=== PATIENT | female | born 1940 | race Caucasian/White ===

== ENCOUNTER 2019-07-17 10:32 | Outpatient (CLI) | payer MEDICARE, OTHER, SELFPAY ==
--- NOTE | ~2019-07-17 | XR_ITS ---
XR cervical spine 4-5V DATE: 07/17/2019 11:08 INDICATION: Neck pain. Spinal stenosis. TECHNIQUE: AP, open-mouth, lateral, swimmer views COMPARISON: 09/04/2013 cervical spine FINDINGS: Status post anterior cervical spine surgical fusion at C3-C5. Anterior plate and screws at C3-C5 are new since 09/04/2013, with interval removal of prior anterior plate at C5-C7/T1 since 014. There is straightening of the cervical spine. C1 and C2 are normally aligned and the odontoid process is intact. No fracture or dislocation, locked facet or prevertebral soft tissue swelling is evident. There is fusion of the anterior cervical spine at C3-C7. IMPRESSION: Status post surgical fusion at C3-C7 Reviewed, dictated and finalized at location B. F MEDICAL OFFICER
== END 2019-07-17 10:33 | disposition home or self-care (01) ==
LOC: ANHIMG 10:53
PROVIDERS: PCP Internal Medicine
DX: M48.02 Spinal stenosis, cervical region (principal); Z98.1 Arthrodesis status
CPT/HCPCS: 72050

== ENCOUNTER 2020-01-13 12:45 | Outpatient (CLI) | payer MEDICARE, OTHER, SELFPAY ==
--- NOTE | ~2020-01-13 | US_ITS ---
EXAMINATION: US arterial ankle brachial ind DATE: 01/13/2020 14:22 INDICATION: Peripheral vascular disease with risk factors of diabetes, hypercholesterolemia and smoki ng. TECHNIQUE: Segmental pressures and plethysmographic and Doppler waveforms of the brachial and lower e xtremity arteries were obtained. COMPARISON: None. FINDINGS: Right and left brachial artery pressures of 120 mm Hg and 135 mm Hg, respectively, are concordant (no rmal difference <= 30 mmHg). The right ankle-brachial index (KEE) is 0.91 (normal >= 0.9-1.0). The right great toe-brachial index (TBI) is 0.60 (normal >= 0.65). Arterial Doppler waveforms are biphasic with brisk systolic upstrokes at both the right posterior tibial and dorsalis pedis arteries. The left KEE is 0.91. The left TBI is 0.54. Arterial Doppler waveforms are biphasic with brisk systol ic upstrokes at both the left posterior tibial and dorsalis pedis arteries. IMPRESSION: 1. 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 Reviewed, dictated and finalized at location A. IMPRESSION: 1. 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
== END 2020-01-13 12:46 | disposition home or self-care (01) ==
PROVIDERS: PCP Internal Medicine; Visit Provider Internal Medicine
DX: I73.9 Peripheral vascular disease, unspecified (principal)
CPT/HCPCS: 93922

== ENCOUNTER 2020-08-11 13:20 | Outpatient (CLI) | payer MEDICARE, OTHER, SELFPAY | END 2020-08-11 13:21 | disposition home or self-care (01) | LOC: ANHCOVIDVC 13:20 | PROVIDERS: PCP Internal Medicine; Visit Provider Internal Medicine | DX: Z23 Encounter for immunization (principal) | CPT/HCPCS: 0001A; 91300 ==

== ENCOUNTER 2020-09-01 13:32 | Outpatient (CLI) | payer MEDICARE, OTHER, SELFPAY | END 2020-09-01 13:33 | disposition home or self-care (01) | LOC: ANHCOVIDVC 13:32 | PROVIDERS: PCP Internal Medicine | DX: Z23 Encounter for immunization (principal) | CPT/HCPCS: 0002A; 91300 ==

== ENCOUNTER 2020-12-02 10:32 | Outpatient (CLI) | payer MEDICARE, OTHER, SELFPAY ==
--- NOTE | ~2020-12-02 | XR_ITS ---
EXAMINATION: XR lumbar spine min 4V DATE: 12/02/2020 10:52 INDICATION: Lumbago. Sciatica. TECHNIQUE: 5 views of lumbar spine were obtained. COMPARISON: Lumbar spine radiographs 04/13/2012 FINDINGS: There is 15 degrees dextroscoliosis of lumbar spine. There is 5 mm anterolisthesis of L4 on L5, 6 mm retrolisthesis of L2 on L3, and 3 mm retrolisthesis of L3 on L4. Vertebral body heights are normal. There is severely decreased disc height at L2-L3, moderately decreased disc height at L3-L4 and L4-L5, and severely decreased disc height at L5-S1. There is multilevel severe facet joint osteoa rthritis. There are surgical clips in right abdomen. IMPRESSION: 1. Severe lumbar spondylosis. 2. Lumbar dextroscoliosis. Reviewed, dictated and finalized at location A.
== END 2020-12-02 10:33 | disposition home or self-care (01) ==
PROVIDERS: PCP Internal Medicine; Visit Provider Internal Medicine
DX: M54.41 Lumbago with sciatica, right side (principal); G89.29 Other chronic pain; M47.896 Other spondylosis, lumbar region
CPT/HCPCS: 72110

== ENCOUNTER 2020-12-09 14:31 | Outpatient (CLI) | payer MEDICARE, OTHER, SELFPAY ==
--- NOTE | ~2020-12-09 | MR_ITS ---
EXAMINATION: MR lumbar spine wo con DATE: 12/09/2020 15:15 INDICATION: Lumbago with sciatica, right-sided. TECHNIQUE: Magnetic resonance imaging (MRI) of the lumbar spine was performed without intravenous con trast. Sequences included sagittal T2-weighted FSE, sagittal T2-weighted FS FSE, sagittal T1-weighted FSE, and axial T2-weighted FSE. COMPARISON: Lumbar spine MRI 09/22/2016 FINDINGS: There is 16 degrees dextroscoliosis of lumbar spine. There is 6 mm retrolisthesis of L2 on L3, 3 mm retrolisthesis of L3 on L4, and 6 mm anterolisthesis of L4 on L5. Vertebral body heights are normal. There is severely decreased disc height at L2-L3 and L3-L4, moderately decreased disc height at L4-L5, and severely decreased disc height at L5-S1 with endplate remodeling. The distal spinal co rd signal intensity is normal. The conus medullaris is at L1-L2. There is ligamentum flavum hypertrop hy at the disc levels from L1-L2 through L4-L5. The following disc levels are specifically discussed: L1-L2: The disc does not extend beyond the endplate margins. There is moderate right and mild left fa cet joint osteoarthritis. There is no neural foraminal stenosis. There is no central canal stenosis. L2-L3: The disc is bulging and has an annular fissure. There is severe bilateral facet joint osteoart hritis. There is moderate right and severe left neural foraminal stenosis. There is mild central alexandra l stenosis. L3-L4: The disc is bulging. There is severe bilateral facet joint osteoarthritis. There is moderate b ilateral neural foraminal stenosis. There is moderate central canal stenosis. L4-L5: The disc is bulging and has an annular fissure. There is severe bilateral facet joint osteoart hritis. There is moderate bilateral neural foraminal stenosis. There is severe central canal stenosis . L5-S1: The disc is bulging and has an annular fissure. There is severe right and moderate left facet joint osteoarthritis. There is moderate bilateral neural foraminal stenosis. There is mild central ca nal stenosis. IMPRESSION: 1. Severe lumbar spondylosis with interval worsening of severe central canal stenosis at L4-L5. 2. Lumbar dextroscoliosis. Reviewed, dictated and finalized at location A. IMPRESSION: 1. Severe lumbar spondylosis with interval worsening of severe central canal st enosis at L4-L5. 2. Lumbar dextroscoliosis.
== END 2020-12-09 14:32 | disposition home or self-care (01) ==
PROVIDERS: PCP Internal Medicine; Visit Provider Internal Medicine
DX: M54.41 Lumbago with sciatica, right side (principal); G89.29 Other chronic pain; M47.896 Other spondylosis, lumbar region
CPT/HCPCS: 72148

== ENCOUNTER 2021-05-13 07:38 | Outpatient (CLI) | payer MEDICARE, OTHER, SELFPAY ==
--- NOTE | ~2021-05-13 | DEXA_ITS ---
Bone Density Report Name: Ebony Núñez Age: 80 Sex: Female Ethnicity: White Date of : 1940 Indication: osteopenia; height loss; prior fracture; hysterectomy; postmenopausal Referring Provider: Zane Shields Study: Bone densitometry was performed. Exam Date: May 13, 2021 Accession number: [id number] There is hypertrophic degenerative change of the lumbar spine, which results in higher than expected spine bone mineral density measurements. These spine BMD and T score and Z score measurements are not reflective of the patient's true general bone mineral density. Bone Density: Region BMD T-score Z-score Classification AP Spine (L1, L4) 1.072 0.3 2.9 Normal Femoral Neck (Left) 0.695 -1.4 0.9 Osteopenia Total Hip (Left) 0.788 -1.3 0.8 Osteopenia Total Hip Bilateral Avg 0.779 -1.4 0.7 Osteopenia Femoral Neck (Right) 0.677 -1.6 0.7 Osteopenia Total Hip (Right) 0.768 -1.4 0.6 Osteopenia World Health Organization criteria for BMD impression classify patients as: Normal (T-score at or above -1.0), Osteopenia (T-score between -1.0 and -2.5), or Osteoporosis (T-score at or below -2.5). 10-year Fracture Risk(1): Major Osteoporotic Fracture 19% Hip Fracture 6.5% Reported Risk Factors: [place] (), Neck BMD=0.677, BMI=23.0, previous fracture, smoking (1) FRAX(R) Version 3.08. Fracture probability calculated for an untreated patient. Fracture probability may be lower if the patient has received treatment. Previous Exams: Region Exam Age BMD T-score BMD Change BMD Change Date g/cm2 vs Baseline vs Previous AP Spine(L1, L4) 05/13/2021 80 1.072 0.3 -0.051(-4.5%)# 0.000(0.0%) 04/12/2019 78 1.071 0.3 -0.051(-4.6%)# 0.014(1.3%) 03/10/2016 75 1.058 0.2 -0.065(-5.8%)# -0.067(-5.9%)# 02/21/2013 72 1.124 0.8 0.002(0.1%)# 0.002(0.1%)# 12/16/2010 70 1.122 0.8 Total Hip(Left) 05/13/2021 80 0.788 -1.3 -0.201(-20.3%) -0.073(-8.4%)* 04/12/2019 78 0.861 -0.7 -0.128(-12.9%) -0.010(-1.1%) 03/10/2016 75 0.871 -0.6 -0.118(-12.0%) -0.039(-4.3%)# 02/21/2013 72 0.909 -0.3 -0.079(-8.0%)# -0.079(-8.0%)# 12/16/2010 70 0.989 0.4 Total Hip(Right) 05/13/2021 80 0.768 -1.4 -0.116(-13.1%) -0.025(-3.1%) 04/12/2019 78 0.793 -1.2 -0.091(-10.3%) -0.030(-3.6%)* 03/10/2016 75 0.823 -1.0 -0.061(-6.9%)# -0.035(-4.1%)# 02/21/2013 72 0.858 -0.7 -0.026(-2.9%)# -0.026(-2.9%)# 12/16/2010 70 0.883 -0.5 *Denotes significance at 95% confidence level, LSC for AP Spine = 0.022 g/cm2, LSC for Total Hip
== END 2021-05-13 07:39 | disposition home or self-care (01) ==
LOC: ANHIMG 07:42
PROVIDERS: PCP Internal Medicine; Visit Provider Internal Medicine
DX: M85.852 Other specified disorders of bone density and structure, left thigh (principal); M85.851 Other specified disorders of bone density and structure, right thigh
CPT/HCPCS: 77080

== ENCOUNTER 2021-07-30 16:55 | Emergency (ER) | payer MEDICARE, OTHER, SELFPAY ==
--- NOTE | ~2021-07-30 | XR_ITS ---
EXAMINATION: XR shoulder RT min 2V, XR humerus RT EXAM DATE: 07/30/2021 17:27 (accession [id number]), 07/30/2021 17:28 (accession [id number]) INDICATION: Fall on ice today; pain Rt shoulder, LROM. TECHNIQUE: Frontal, Y projections of the right shoulder. Orthogonal projections of the right humerus. There are no prior studies for comparison. FINDINGS: Acute closed posttraumatic fracture of the right humeral greater tuberosity. There is also possible transverse fracture through the neck of the humerus. No dislocation. IMPRESSION: Right humeral greater tuberosity and possible transverse neck fracture. Reviewed, dictated and finalized at location G. ES OPERATOR IMPRESSION: Right humeral greater tuberosity and possible transverse neck fract ure.
--- NOTE | ~2021-07-30 | CT_ITS ---
EXAMINATION: CT brain wo con EXAM DATE: 07/30/2021 18:09 INDICATION: Head injury, laceration to right eyebrow. TECHNIQUE: Spiral CT of the head was performed without contrast. Axial, coronal and sagittal images were reviewed. The dose-length product (DLP) for this examination was 605.33 mGy-cm. The exposure w as tailored according to patient size, and iterative reconstruction (ASIR) was used as additional dos e reduction technique. There is no prior study for comparison. FINDINGS: There is no acute intraparenchymal hemorrhage. No evidence of intraparenchymal brain mass lesion. No evidence of acute infarction. Please note that initial head CT has limited sensitivity f or small or acute infarctions. There is mild periventricular and subcortical hypodensity, nonspecific but probably related to small vessel ischemic disease. There is mild prominence of the sulci and v entricles related to cerebral atrophy. There is intracranial carotid arteriosclerosis. There are n o extra-axial collections. There is no mass effect or midline shift. Patient has had bilateral ocul ar lens surgery. Soft tissue is unremarkable. The visualized sinuses and mastoid air cells are well aerated. IMPRESSION: 1. No acute intracranial findings. 2. Chronic age related findings. Reviewed, dictated and finalized at location G. ATING ROOM ASSISTANT
[2021-07-30 17:00] VITALS: BP 131/69; PULSE 82; RESP 18; TEMP 36.2; O2SAT 98
--- NOTE | 2021-07-30 18:42 | ED.FALL ---
HPI - Fall General Chief Complaint: Fall Stated Complaint: slipped on ice, forehead lac, r shoulder pain Time Seen by Provider: 07/30/21 17:51 Source: patient and RN notes reviewed History of Present Illness HPI Narrative: 80-year-old female presenting to the emerge department for evaluation after having a ground-level fall. Patient states she was walking on the sidewalk and slipped on the ice causing her to fall on the right side and strike her face on the ground. Patient denies any loss of consciousness. Patient does have right shoulder pain. Patient denies any other pain or injury. Patient was able to ambulate at the scene with assistance. Patient presented to the emergency department by private transport. MD complaint: fall Related Data Allergies Allergy/AdvReac Type Severity Reaction Status Date / Time azithromycin Allergy Mild red Verified 07/01/21 13:15 blotches codeine Allergy Mild head aches Verified 07/01/21 13:15 niacin Allergy Mild skin feels Verified 07/01/21 13:15 hot prednisone Allergy Mild migraine Verified 07/01/21 13:15 headaches STEROIDS Allergy Intermediate Headache Uncoded 07/01/21 13:15 Review of Systems Review of Systems: CONSTITUTIONAL: Denies fever, chills, or sweats. EYES: Denies visual changes, redness, or discharge. ENT: Denies rhinorrhea, congestion, sore throat, or otalgia. CARDIOVASCULAR: Denies chest pain, palpitations, or edema. RESPIRATORY: Denies cough or dyspnea. GASTROINTESTINAL: Denies abdominal pain, nausea, vomiting, or diarrhea. GENITOURINARY: Denies dysuria or hematuria. SKIN: Laceration over right eyebrow MUSCULOSKELETAL: Right shoulder pain NEUROLOGIC: Denies headache, numbness, or weakness. PSYCHIATRIC: Denies anxiety or depression. All systems reviewed & are unremarkable except as noted in HPI and below PMFSH Family History Family History Mother Family history of tuberculosis Father Cerebrovascular accident Sibling Family history of aortic aneurysm Social History Social History Smoking packs per day: 0.5 Smoking cigarettes per day: 10.0 Years smoked: 62 Smoking pack-years: 31.00 Second hand tobacco smoke exposure: No Alcohol intake: never Substance use: never Substance use type: does not use Exam Narrative: APPEARANCE: Well appearing, no pain, no distress, well-nourished. HEAD: normocephalic, 3 cm laceration over right eyebrow EYES: PERRLA/EOMI, conjunctivae clear. NOSE: Normal no drainage EARS:TMS clear with good light reflex. THROAT: Pharynx clear, no exudate. NECK: Supple. No adenopathy, no masses. RESPIRATORY: Airway patent, respirations nonlabored. Clear to auscultation bilaterally, no rales, rhonchi, wheezing. CARDIOVASCULAR: Regular rate and rhythm without murmurs rubs or gallops. ABDOMINAL: Soft, nontender, nondistended, normal bowel sounds MUSCULOSKELETAL: Right arm is neurovascularly intact. Right shoulder tender to palpation. No gross deformity. NEURO: Alert. Cranial nerves II through XII intact. Good coordination SKIN: Warm, dry. Normal Color PSYCHIATRIC: Normal affect/mood. Course Course Emergency Course: Patient's laceration was repaired as described. Patient does have a fracture of her right humerus. Patient was placed in a shoulder immobilizer and does feel improved. Patient states that she feels she is able to ambulate well and able to take care of her self. Patient is requesting discharge to home. X-ray was shown to orthopedics and they were comfortable with the plan for discharge and close follow-up in the clinic. Vital Signs Vital signs: Vital Signs Temperature 97.2 F L 07/30/21 17:00 Pulse Rate 82 07/30/21 17:00 Respiratory Rate 18 07/30/21 17:00 Blood Pressure 131/69 07/30/21 17:00 Pulse Oximetry 98 07/30/21 17:00 Temperature 97.2 F L 07/30/21 17:00 Pulse Rate 82 07/30/21
--- NOTE | 2021-07-30 19:43 | PC.NURSE ---
Shoulder immobilizer applied to right shoulder. Patient tolerated well. Patient then ambulated to the restroom with manual writer and back to her room. Patient reported she was okay and was okay to go home.
[2021-07-30] MEDS: HYDROcodone/acetaminophen (*CRX) 5-325 MG TABLET 1 TAB PO (21:14)
--- NOTE | 2021-07-30 21:37 | PC.NURSE ---
RN noted that [facility] to [facility] which is a home delivery [facility]. ERP notified and Rx printed and given to Pt. Pt walked to the car by RN and assisted into the car.
== END 2021-07-30 20:20 | disposition home or self-care (01) ==
PROVIDERS: Emergency Provider Emergency Medicine; PCP Internal Medicine
DX: S01.111A Laceration without foreign body of right eyelid and periocular area, initial encounter (principal); S42.251A Displaced fracture of greater tuberosity of right humerus, initial encounter for closed fracture; F17.210 Nicotine dependence, cigarettes, uncomplicated; W00.0XXA Fall on same level due to ice and snow, initial encounter
CPT/HCPCS: 12013; 70450; 73030; 73060; 99284; A9270

== ENCOUNTER 2022-03-15 00:58 | Day surgery (SDC) | payer MEDICARE, OTHER, SELFPAY ==
[2022-02-24 13:24] VITALS: BMI 22.8
[2022-03-15 07:58] VITALS: BP 115/80; PULSE 94; RESP 16; TEMP 36.4; O2SAT 98
[2022-03-15] MEDS: LACTATED RINGERS 1,000 ML 150 ML IV CONT ×2 (08:04→09:08)
--- NOTE | 2022-03-15 08:43 | PM.HPGS ---
History of Present Illness History of Present Illness Consent: Risks, benefits, and alternatives have been discussed and questions answered. Patient agrees to proceed with procedure. Chief complaint: change in bowel habits Narrative: Ebony Núñez is a 81 year old female here for colonoscopy, several months noted mucus in stool and change in caliber of stool but this is also intermittent, denies blood in stool or weight loss. Recently also had an accident without warning. Last colonoscopy 8 years ago with polyp Review of Systems Constitutional: Constitutional: Denies headache(s) and Denies weakness Eyes: Eyes: Denies blurry vision ENT: Reports Normal hearing present, Denies headache(s) and Denies neck pain Cardiovascular: Cardiovascular: Denies chest pain and Denies dyspnea Respiratory: Respiratory: Denies dyspnea Gastrointestinal: Gastrointestinal: Reports no additional gastrointestinal complaints Genitourinary: Genitourinary: Denies dysuria Musculoskeletal: Musculoskeletal: Denies neck pain Integumentary/Breasts: Skin/Breast: Denies dry skin Neurologic: Reports Normal hearing present, Denies headache(s) and Denies weakness Psychiatric: Psychiatric: Denies anxiety Endocrine: Endocrine: Denies change in body appearance Hematologic/Lymphatic: Hematologic/Lymphatic: Denies easy bleeding Allergic/Immunologic: Allergic/Immunologic: Denies urticaria PMFSH Past Medical History Medical History (Updated 01/27/22 @ 14:18 by Jordon Michelle MD) Bowel habit changes DJD of right shoulder Family History Family History Mother Family history of tuberculosis Father Cerebrovascular accident Sibling Family history of aortic aneurysm Social History Social History (Updated 01/27/22 @ 13:49 by Iman Kay CMA) Smoking packs per day: 0.5 Smoking cigarettes per day: 10.0 Years smoked: 62 Smoking pack-years: 31.00 Smoking status: Current every day smoker Tobacco type: cigarettes Second hand tobacco smoke exposure: No Additional smoking assessment comments: has smoked for 62 years Alcohol intake: never Substance use: current Substance use type: marijuana Other substance usage details: uses weekly for pain Living arrangements: alone Gender identity (if verbalized by the patient): Female Spiritual care concerns: No Meds Home Medications and Allergies Home Medications Medication Instructions Recorded Confirmed Type atorvastatin 40 mg tablet 40 mg PO DAILY #90 tabs 04/09/21 03/15/22 Rx celecoxib 200 mg capsule (Celebrex) 200 mg PO DAILY #90 caps 09/09/21 03/15/22 Rx tramadol 50 mg tablet 50 mg PO Q6H PRN pain #30 tabs 09/28/21 03/15/22 Rx famotidine 40 mg tablet 40 mg PO BID #180 tabs 10/12/21 03/15/22 Rx amitriptyline 10 mg tablet See Rx Instructions .Route 10/18/21 03/15/22 Rx .COMPLEX #90 tabs losartan 100 1 tablet PO DAILY #90 tabs 10/28/21 03/15/22 Rx mg-hydrochlorothiazide 12.5 mg tablet potassium chloride 10 mEq 30 meq PO DAILY #270 tabs 11/09/21 03/15/22 Rx tablet,extended release Allergies Allergy/AdvReac Type Severity Reaction Status Date / Time azithromycin Allergy Mild red Verified 03/15/22 07:56 blotches codeine Allergy Mild head aches Verified 03/15/22 07:56 niacin Allergy Mild skin feels Verified 03/15/22 07:56 hot prednisone Allergy Mild migraine Verified 03/15/22 07:56 headaches STEROIDS Allergy Intermediate Headache Uncoded 03/15/22 07:56 Vital Signs Vital Signs - 24 hr 03/15/22 07:58 Temperature 97.5 F L Pulse Rate 94 Respiratory Rate 16 Blood Pressure 115/80 Pulse Oximetry 98 Oxygen Delivery Room Air Exam Const: General: comfortable and no acute distress HENMT: Face/Nose/Sinus: Normal nares present Eyes: General: appearance normal, both eyes and all related structures Neck: Neck: no JVD Resp: Auscultation: cl
--- NOTE | 2022-03-15 08:52 | WPDANESEPPF ---
Anes - Initial Pre Proc Eval Procedure: Operation Date: 03/15/22 09:00 Proposed Procedures p Colonoscopy - Jordon Michelle MD Date/Time: 03/15/22 08:52 Surgeon: Jordon Michelle MD Pre Op Diagnosis: change in bowel habits Patient Data Age: 81 Gender: F Height: 1.6 m Weight: 58.3 kg Last Vital Signs Temp 97.5 F L 03/15/22 07:58 Pulse 94 03/15/22 07:58 Resp 16 03/15/22 07:58 BP 115/80 03/15/22 07:58 Pulse Ox 98 03/15/22 07:58 O2 Del Method Room Air 03/15/22 07:58 Allergies Allergy/AdvReac Type Severity Reaction Status Date / Time azithromycin Allergy Mild red Verified 03/15/22 07:56 blotches codeine Allergy Mild head aches Verified 03/15/22 07:56 niacin Allergy Mild skin feels Verified 03/15/22 07:56 hot prednisone Allergy Mild migraine Verified 03/15/22 07:56 headaches STEROIDS Allergy Intermediate Headache Uncoded 03/15/22 07:56 Home Medications Medication Instructions Recorded Confirmed Type atorvastatin 40 mg tablet 40 mg PO DAILY #90 tabs 04/09/21 03/15/22 Rx celecoxib 200 mg capsule (Celebrex) 200 mg PO DAILY #90 caps 09/09/21 03/15/22 Rx tramadol 50 mg tablet 50 mg PO Q6H PRN pain #30 tabs 09/28/21 03/15/22 Rx famotidine 40 mg tablet 40 mg PO BID #180 tabs 10/12/21 03/15/22 Rx amitriptyline 10 mg tablet See Rx Instructions .Route 10/18/21 03/15/22 Rx .COMPLEX #90 tabs losartan 100 1 tablet PO DAILY #90 tabs 10/28/21 03/15/22 Rx mg-hydrochlorothiazide 12.5 mg tablet potassium chloride 10 mEq 30 meq PO DAILY #270 tabs 11/09/21 03/15/22 Rx tablet,extended release Patient hx anesthesia problems: post op nausea/vomiting Family hx anesthesia problems: none Results Review: All pre-operative results and documents have been reviewed as part of the pre-operative evaluation. [facility] Past Medical History Medical History (Updated 01/27/22 @ 14:18 by Jordon Michelle MD) Bowel habit changes DJD of right shoulder Family History Family History Mother Family history of tuberculosis Father Cerebrovascular accident Sibling Family history of aortic aneurysm Social History Social History (Updated 01/27/22 @ 13:49 by Iman Kay CMA) Smoking packs per day: 0.5 Smoking cigarettes per day: 10.0 Years smoked: 62 Smoking pack-years: 31.00 Smoking status: Current every day smoker Tobacco type: cigarettes Second hand tobacco smoke exposure: No Additional smoking assessment comments: has smoked for 62 years Alcohol intake: never Substance use: current Substance use type: marijuana Other substance usage details: uses weekly for pain Living arrangements: alone Gender identity (if verbalized by the patient): Female Spiritual care concerns: No Anes - Eval Final PreProcedure Day of Procedure 03/15/22 08:52 Patient weight: normal Heart: regular rate and rhythm Lungs: clear to auscultation Airway: Mallampati scale class II Neurological: alert and oriented Last oral intake: >/= 8 hours ASA classification: II Emergent: no Anesthetic plan: proceed Anesthesia type and monitoring: general GIVS and standard monitoring Results Review: All pre-operative results and documents have been reviewed as part of the pre-operative evaluation. Informed Consent: The patient's anesthetic plan and its attendant risks and benefits were discussed with the patient/family/POA. Questions were solicited and answers provided to the satisfaction of the patient/family/POA.
[2022-03-15 09:11] VITALS: BP 114/64; PULSE 79; RESP 16; O2SAT 98
[2022-03-15 09:21] VITALS: BP 129/68; PULSE 74; RESP 20; O2SAT 98
[2022-03-15 09:31] VITALS: BP 143/79; PULSE 71; RESP 22; O2SAT 98
== END 2022-03-15 09:46 | disposition home or self-care (01) ==
PROVIDERS: PCP Internal Medicine; Visit Provider Internal Medicine Gastroenterology
PROC: 0DJD8ZZ Inspection of Lower Intestinal Tract, Via Natural or Artificial Opening Endoscopic (ICD-10-PCS; CPT 45378; principal; 2022-03-15 09:00)
DX: R19.4 Change in bowel habit (principal); K57.30 Diverticulosis of large intestine without perforation or abscess without bleeding; K64.8 Other hemorrhoids; F17.210 Nicotine dependence, cigarettes, uncomplicated; F12.90 Cannabis use, unspecified, uncomplicated
CPT/HCPCS: 45380; 88305; J2704; J7120

== ENCOUNTER 2022-05-23 12:08 | Outpatient (CLI) | payer MEDICARE, OTHER, SELFPAY ==
--- NOTE | ~2022-05-23 | XR_ITS ---
Right Shoulder Technique: AP and scapular Y views were obtained. Clinical History: Osteoarthritis COMPARISON: 11/22/2021 Findings: No acute fracture or dislocation is seen. Chronic/healed fracture deformity through the john gical neck of the right humerus noted. The glenohumeral and acromioclavicular joint spaces are preser miguel. Soft tissues are unremarkable. Impression: No acute abnormality. Chronic/healed fracture deformity of the surgical neck of the right humerus. Reviewed, dictated and finalized at location M. ER CHASER Impression: No acute abnormality. Chronic/healed fracture deformity of the surgical neck of the right humerus.
== END 2022-05-23 12:09 | disposition home or self-care (01) ==
PROVIDERS: PCP Internal Medicine; Visit Provider Internal Medicine
DX: M19.011 Primary osteoarthritis, right shoulder (principal)
CPT/HCPCS: 73030

== ENCOUNTER 2023-07-24 13:33 | Outpatient (CLI) | payer MEDICARE, OTHER, SELFPAY ==
--- NOTE | ~2023-07-24 | DEXA_ITS ---
Bone Density Report Name: BARBARA EUCEDA Age: 82 Sex: Female Ethnicity: White Date of : 1940 Indication: osteopenia; hysterectomy; postmenopausal Referring Provider: BAY COLLADO Study: Bone densitometry was performed. Exam Date: July 24, 2023 Accession number: [id number] Bone Density: Region BMD T-score Z-score Classification AP Spine(L1, L4) 1.027 -0.1 2.6 Normal Femoral Neck (Left) 0.723 -1.1 1.2 Osteopenia Total Hip (Left) 0.809 -1.1 1.1 Osteopenia Femoral Neck (Right) 0.642 -1.9 0.5 Osteopenia Total Hip (Right) 0.721 -1.8 0.3 Osteopenia Total Hip Mean 0.765 -1.5 0.7 Osteopenia World Health Organization criteria for BMD impression classify patients as: Normal (T-score at or above -1.0), Osteopenia (T-score between -1.0 and -2.5), or Osteoporosis (T-score at or below -2.5). 10-year Fracture Risk(1): Major Osteoporotic Fracture 15% Hip Fracture 6.5% Reported Risk Factors: [place] (), Neck BMD=0.642, BMI=22.8, smoking (1) FRAX(R) Version 3.08. Fracture probability calculated for an untreated patient. Fracture probability may be lower if the patient has received treatment. Previous Exams: Region Exam Age BMD T-score BMD Change BMD Change Date g/cm2 vs Baseline vs Previous AP Spine (L1,L4) 07/24/2023 82 1.027 -0.1 -0.097 (-8.6%) -0.044 (-4.1%) 05/13/2021 80 1.072 0.3 -0.052 (-4.6%) 0.000 (0.0%) 04/12/2019 78 1.071 0.3 -0.053 (-4.7%) 0.014 (1.3%) 03/10/2016 75 1.058 0.2 -0.067 (-5.9%) -0.067 (-5.9%) 02/21/2013 72 1.124 0.8 Total Hip(Left) 07/24/2023 82 0.809 -1.1 -0.101 (-11.1% 0.020 (2.6%) 05/13/2021 80 0.788 -1.3 -0.121 (-13.3% -0.073 (-8.4%) 04/12/2019 78 0.861 -0.7 -0.048 (-5.3%) -0.010 (-1.1%) 03/10/2016 75 0.871 -0.6 -0.039 (-4.3%) -0.039 (-4.3%) 02/21/2013 72 0.909 -0.3 Total Hip(Right) 07/24/2023 82 0.721 -1.8 -0.136 (-15.9% -0.046 (-6.0%) 05/13/2021 80 0.768 -1.4 -0.090 (-10.5% -0.025 (-3.1%) 04/12/2019 78 0.793 -1.2 -0.065 (-7.6%) -0.030 (-3.6%) 03/10/2016 75 0.823 -1.0 -0.035 (-4.1%) -0.035 (-4.1%) 02/21/2013 72 0.858 -0.7 *Denotes significance at 95% confidence level, LSC for AP Spine = 0.022 g/cm2, LSC for Total Hip = 0.027 g/cm2 # Denotes dissimilar scan types or analysis methods Clinical Information Provided by Patient: Smokes Has used the following medications: HRT (i.e. estrogen/hormone therapy), Vitamin D Has the following medic
== END 2023-07-24 13:34 | disposition home or self-care (01) ==
LOC: ANHIMG 13:36
PROVIDERS: PCP Family Medicine; Visit Provider Family Medicine
DX: M85.89 Other specified disorders of bone density and structure, multiple sites (principal); M85.852 Other specified disorders of bone density and structure, left thigh; M85.851 Other specified disorders of bone density and structure, right thigh
CPT/HCPCS: 77080

== ENCOUNTER 2023-10-17 10:15 | Outpatient (CLI) | payer MEDICARE, OTHER, SELFPAY ==
--- NOTE | ~2023-10-17 | CT_ITS ---
EXAMINATION: CT brain wo con DATE: 10/17/2023 10:39 INDICATION: Head injury TECHNIQUE: Computed tomography (CT) of the head was performed without intravenous contrast. Sagittal and coronal reconstructions were performed. The mA was adjusted according to patient size. Iterative reconstruction technique was employed. The dose-length product was 681.00 mGy-cm. COMPARISON: head CT dated 07/30/2021 FINDINGS: No acute intracranial hemorrhage, acute infarction or abnormal extra axial fluid collection. Small ol d lacunar infarcts at the bilateral basal ganglia. There is moderate scattered white matter hypoatten uation consistent with chronic small vessel ischemic disease. Symmetric prominence of the sulci consi stent with moderate age-appropriate diffuse cerebral volume loss. Ventricles are normal and symmetri c. No mass/mass effect. Changes of bilateral intraocular lens replacement. The orbits, paranasal sinu ses and mastoid air cells are normal. IMPRESSION: 1. No acute intracranial process. 2. Small old lacunar infarcts at the bilateral basal ganglia and moderate scattered white matter hypo attenuation consistent with chronic small vessel ischemic disease. Reviewed, dictated and finalized at location A. IMPRESSION: 1. No acute intracranial process. 2. Small old lacunar infarcts at the bilateral basal ganglia and moderate scatt ered white matter hypoattenuation consistent with chronic small vessel ischemic disease.
--- NOTE | ~2023-10-17 | XR_ITS ---
EXAMINATION: XR lumbar spine 2-3V DATE: 10/17/2023 10:51 INDICATION: Fall. Low back pain. TECHNIQUE: 3 views of lumbar spine were obtained. COMPARISON: Lumbar spine radiograph 12/02/2020 FINDINGS: There is 16 degrees dextroscoliosis of lumbar spine. There is 4 mm retrolisthesis of L2 on L3 and 7 mm anterolisthesis of L4 on L5. Vertebral body heights are normal. There is moderately decre ased disc height at L1-L2, severely decreased disc height at L2-L3 and L3-L4, moderately decreased di sc height at L4-L5, and severely decreased disc height at L5-S1. There is multilevel severe facet lynda nt osteoarthritis. There are surgical clips in right abdomen. IMPRESSION: 1. Severe lumbar spondylosis. 2. Lumbar dextroscoliosis. Reviewed, dictated and finalized at location A.
== END 2023-10-17 10:16 | disposition home or self-care (01) ==
LOC: ANHIMG 10:17
PROVIDERS: PCP Family Medicine; Visit Provider Nurse Practitioner Family
DX: M43.06 Spondylolysis, lumbar region (principal); M41.86 Other forms of scoliosis, lumbar region; M54.30 Sciatica, unspecified side; I63.81 Other cerebral infarction due to occlusion or stenosis of small artery; R90.82 White matter disease, unspecified
CPT/HCPCS: 70450; 72100

== ENCOUNTER 2024-02-09 17:13 | Outpatient (CLI) | payer MEDICARE, OTHER, SELFPAY ==
--- NOTE | ~2024-02-09 | XR_ITS ---
EXAMINATION: XR chest 2V DATE: 02/09/2024 17:30 INDICATION: Cough, unspecified. TECHNIQUE: Frontal and lateral views of the chest were obtained. COMPARISON: Chest 2 views 02/26/2016 FINDINGS: The lungs are hyperexpanded with lucencies, consistent with emphysema. Calcified pulmonary nodules are consistent with old granulomatous disease. No pleural effusion or pneumothorax. The heart size is normal. There are surgical clips in right abdomen. There are changes of anterior fusion proc edure in cervical spine. There is an old healed fracture of proximal right humerus. IMPRESSION: 1. Emphysema. Reviewed, dictated and finalized at location A. IMPRESSION: 1. Emphysema.
== END 2024-02-09 17:14 | disposition home or self-care (01) ==
PROVIDERS: PCP Family Medicine; Visit Provider Nurse Practitioner Family
DX: J43.9 Emphysema, unspecified (principal); R05.9 Cough, unspecified
CPT/HCPCS: 71046

== ENCOUNTER 2024-02-09 18:04 | Emergency (ER) | payer MEDICARE, OTHER, SELFPAY ==
[2024-02-09 18:21] VITALS: BP 122/64; PULSE 119; RESP 20; TEMP 37; O2SAT 80
--- NOTE | 2024-02-09 18:25 | ED.DENTAL ---
HPI - Dental/Oral General Chief complaint: Dental/Oral Stated complaint: possible thrush Time Seen by Provider: 02/09/24 18:26 Source: patient, RN notes reviewed and old records reviewed Mode of arrival: ambulatory Limitations: no limitations History of Present Illness HPI Narrative: Patient presents with complaints of oral pain. She reports that she just finished a course of Levaquin. Now has red tongue with white spots, reports she has been unable to eat secondary to her discomfort. Symptoms began today. She is able to drink water without any difficulty. She reports she has been very mindful of staying well hydrated. Initial vital signs recorded inaccurate, patient has Raynaud's, pulse ox was not picking up true vital signs Related Data Home Medications Medication Instructions Recorded Confirmed hydrocodone 5 mg-acetaminophen 325 1 tablet PO BID PRN Pain 10/17/23 02/09/24 mg tablet amlodipine 2.5 mg tablet 2.5 mg PO DAILY 02/01/24 02/09/24 Allergies Allergy/AdvReac Type Severity Reaction Status Date / Time azithromycin Allergy Mild red Verified 02/09/24 18:06 blotches codeine Allergy Mild head aches Verified 02/09/24 18:06 niacin Allergy Mild skin feels Verified 02/09/24 18:06 hot prednisone Allergy Mild migraine Verified 02/09/24 18:06 headaches STEROIDS Allergy Intermediate Headache Uncoded 02/09/24 18:06 Review of Systems Review of Systems: All systems reviewed & are unremarkable except as noted in HPI and below Constitutional: Constitutional: Reports no additional constitutional complaints ENT: Reports system reviewed and no additional complaints, except as documented and Reports as per HPI Cardiovascular: Cardiovascular: Reports no additional cardiovascular complaints Respiratory: Respiratory: Reports no additional respiratory complaints Gastrointestinal: Gastrointestinal: Reports no additional gastrointestinal complaints [facility] Past Medical History Medical History Bowel habit changes DJD of right shoulder Type 2 diabetes mellitus with hyperglycemia Family History Family History Mother Family history of tuberculosis Father Cerebrovascular accident Sibling Family history of aortic aneurysm Alzheimer's disease Social History Social History Smoking packs per day: 0.5 Smoking cigarettes per day: 10.0 Years smoked: 62 Smoking pack-years: 31.00 Smoking status: Current every day smoker Tobacco type: cigarettes Second hand tobacco smoke exposure: No Additional smoking assessment comments: has smoked for 62 years Alcohol intake: never Substance use: current Substance use type: marijuana Other substance usage details: uses weekly for pain Do You Feel Safe in your Home?: Yes Lack of Transportation: No Lack of Food: Never True Current Housing: I Have Housing Concerned About Future Housing: No Difficulty Paying Gas/Electric Bills: No Difficulty Paying for Meds: No Currently Unemployed: No Education: Associate Degree Difficulty w/ Childcare or Family Care: No Living arrangements: alone Occupation/Education: retired Gender identity (if verbalized by the patient): Female Sexual Orientation (if Verbalized by the Patient): Straight or Heterosexual Spiritual care concerns: No Agree to blood products: Yes Comments At the time of my signature, I reviewed and agree with the nursing past medical, surgical, social, and family history. There is no relevant family history pertinent to the patient complaint. Exam Const: General: cooperative, no acute distress, alert and awake Orientation/consciousness: oriented to person, oriented to place and oriented to time HENMT: Head: normal to inspection Mouth: Yes Abnormal oral and palatal mucosa present erythematous, edemato
[2024-02-09 18:57] VITALS: PULSE 84; RESP 20; O2SAT 94
== END 2024-02-09 19:05 | disposition home or self-care (01) ==
PROVIDERS: Emergency Provider Nurse Practitioner Family; PCP Family Medicine
DX: B37.0 Candidal stomatitis (principal); F17.210 Nicotine dependence, cigarettes, uncomplicated; F12.90 Cannabis use, unspecified, uncomplicated; M19.011 Primary osteoarthritis, right shoulder; E11.9 Type 2 diabetes mellitus without complications
CPT/HCPCS: 71046; 99213; G0463

== ENCOUNTER 2024-09-03 12:23 | Outpatient (CLI) | payer MEDICARE, OTHER, SELFPAY ==
--- NOTE | ~2024-09-03 | XR_ITS ---
XR chest 2V 09/03/2024 13:00 Indication: Cough. History of COPD. Procedure: 2 view chest Comparison: Comparison to multiple prior studies sequentially, with oldest reviewed study dated 03/10. Findings: Heart size normal. Bibasilar airspace disease has developed, consistent with pneumonia. The lungs are hyperinflated which is consistent with, but not diagnostic of chronic obstructive pulmonar y disease. There are calcified granulomas of the lungs. There is a healed right humeral neck fracture . No significant effusion, edema or pneumothorax. Impression: 1: Bibasilar airspace disease, best seen on lateral view, consistent with pneumonia. Reviewed, dictated and finalized at location A. Impression: 1: Bibasilar airspace disease, best seen on lateral view, consistent with pneum onia.
--- NOTE | ~2024-09-03 | XR_ITS ---
EXAMINATION: XR tibia fibula LT 2V DATE: 09/03/2024 13:00 INDICATION: Pain in the lower leg. TECHNIQUE: 2 views of left tibia and fibula were obtained. COMPARISON: None. FINDINGS: Alignment is normal. No fracture. Left knee demonstrates moderate osteoarthritis of medial compartment and mild osteoarthritis of the lateral and patellofemoral compartments. IMPRESSION: 1. Moderate left knee osteoarthritis. Reviewed, dictated and finalized at location []
--- NOTE | ~2024-09-03 | XR_ITS ---
EXAMINATION: XR tibia fibula RT 2V DATE: 09/03/2024 13:00 INDICATION: Right lower leg pain. TECHNIQUE: 2 views of right tibia and fibula were obtained. COMPARISON: None. FINDINGS: Bone alignment is normal. No fracture. There is mild right knee osteoarthritis. IMPRESSION: 1. Mild right knee osteoarthritis. Reviewed, dictated and finalized at location []
--- OUTSIDE RECORDS SUMMARY | 2024-09-03 14:21 | XMS_ITS | Encounter Summary ---
Author Organization [facility] Address [address] [place] [address] Care Team Providers Care Chicken Picker Name Role Phone Eder Crawley MD Primary Care Provider Carlos Raines DO Primary Care Provider [phone] Encounter Details Date Type Department Care Team (Late st Contact Info) Description 10/17/2019 Lab Requisition [facility] Care DermPath Lab [address] [facility] [place] [address] Bogdan Ramirez MD [address] [place] [address] Social History Tobacco Use Types Packs/Day Years Used Date Smoking Tobacco: Every Day Cigarettes Alcohol Use Standard Drinks/Week Comments Yes 0 (1 standard drink = 0.6 oz pur e alcohol) Sex and Gender Information Value Date Recorded Sex Assigned at Not on file Gender Identity Not on file Sexual Orientation Not on file documented as of this encounter Plan of Treatment Not on file documented as of this encounter Procedures Procedure Name Priority Date/Time Associated Diagnosis Comments DERMATOPATHOLOGY Routine 10/16/2019 12:0 0 AM CDT documented in this encounter Results * DERMATOPATHOLOGY (10/16/2019 12:00 AM CDT) Case Report Dermatopathology Report Case: [id number] Authorizing Provider: Bogdan Ramirez MD Collected: 10/16/2019 12:00 AM Ordering Location: [facility] DermPath Lab Received: 10/17/2019 11:39 AM Pathologist: Cody Barrios MD Specimens: A) - Skin, right ant shoulder B) - Skin, right distal med thigh C) - Skin, right distal med thigh post D) - Skin, left sup lat calf 0 4:16 PM [facility] DERMATOPATHOLOGY LABORATORY Final Diagnosis Specimen A. 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 B-D: R/O SCC. 0 4:16 PM T DERMATOPATHOLOGY LABORATORY Gross Description Specimen A: Received is one formalin filled container labeled with the patient's name and designated right ant shoulder. The specimen consists of a punch biopsy measuring [id number], bisected. Jar 0. Specimen B: Received is one formalin filled container labeled with the patient's name and designated right distal med thigh. The specimen consists of a shave biopsy measuring [id number]. Jar 0. Specimen C: Received is one formalin filled container labeled with the patient's name and designated right distal med thigh post. The specimen consists of a shave biopsy measuring [id number]. Jar 0. Specimen D: Received is one formalin filled container labeled with the patient's name and designated left sup lat calf. The specimen consists of a shave biopsy measuring [id number]. Jar 0. 0 4:16 PM T DERMATOPATHOLOGY LABORATORY Microscopic Description Specimen A. SKIN, right ant shoulder: Within the dermis, there is a well-circumscribed aggregate of spindle shaped cells with hints of organization into fascicles and clefts between these fascicles . The tumor cells are highlighted on S100 but not Desmin. Specimen B. SKIN, right distal med thigh: The epidermis shows parakeratosis, full thickness disorderly maturation of keratinocytes, mitoses at different levels, and dyskeratotic cells. Specimen C. SKIN, right distal med thigh post: The epidermis shows parakeratosis, full thickness disorderly maturation of keratinocytes, mitoses at different levels, and dyskeratotic cells. Specimen D. SKIN, left sup lat calf: The epidermis shows parakeratosis, full thickness disorderly maturation of keratinocytes, mitoses at different levels, and dyskeratotic cells. 0 4:16 PM CDT DERMATOPATHOLOGY LABORATORY Disclaimer An external and internal positive and negative controls are appropriate for the histochemical, immunohistochemical and immunofluorescence stain(s) in this case (if any), except where stated explicitly. The performance characteristics of the stain(s) cited in this report were developed and its performance characteristic determined by the Dermatopathology Laboratory at [facility], directed by Dr. Tian Barrios. These tests need not be, and therefore are not, approved by the [place] Food and Drug Administration. The tests are used for clinical purposes. Billing Codes Specimen Charges Stain Charges 05048 76356 90642 30403 1 1 1 1 66428 09228 1 1 0 4:16 PM CDT DERMATOPATHOLOGY LABORATORY Embedded Images 0 4:16 PM CDT DERMATOPATHOLOGY LABORATORY Pathology/Cytology TISSUE SPECIMEN FROM SKIN / Unknown 10/16/2019 10/17/2019 11:39 AM CDT Miscellaneous samples (specimen) TISSUE SPECIMEN FROM SKIN / Unknown 10/16/2019 10/17/2019 11:39 AM CDT Miscellaneous samples (specimen) TISSUE SPECIMEN FROM SKIN / Unknown 10/16/2019 10/17/2019 11:39 AM CDT Miscellaneous samples (specimen) TISSUE SPECIMEN FROM SKIN / Unknown 10/16/2019 10/17/2019 11:39 AM CDT Bogdan Ramirez MD LAB - PATHOLOGY/CYTO LOGY ORDERABLES DERMATOPATHOLOGY LABORATORY [facility] - Department of Dermatology [address] [place] [address], 5th Floor Lab [address] [phone] documented in this encounter Visit Diagnoses Not on filedocumented in this encounter Care Teams Chicken Picker Relationship Specialty Start Date End Date Eder Crawley MD [address] [place] [id number] PCP - General 04/27/10 03/17/22 Carlos Raines DO [address] [place] [address] PCP - General 03/18/22 documented as of this encounter
--- OUTSIDE RECORDS SUMMARY | 2024-09-03 14:22 | XMS_ITS | Encounter Summary ---
Author Organization [facility] Address [address] [place] [address] Care Team Providers Care News Reel Cameraman Name Role Phone Carlos Raines Lashon DUNN Primary Care Provider [phone] Encounter Details Date Type Department Care Team (Late st Contact Info) Description 05/24/2024 Lab Requisition [facility] - DermPath Lab [address] [facility] [place] [id number] Qiana Cole MD [address] [place] [address] Neoplasm of uncertain behavior of skin Social History Tobacco Use Types Packs/Day Years [...] Priority Date/Time Associated Diagnosis Comments DERMATOPATHOLOGY Routine 05/23/2024 12:0 0 AM COMPLIANCE MONITOR Neoplasm of uncertain behavior of skin documented in this encounter Results * DERMATOPATHOLOGY (05/23/2024 12:00 AM COMPLIANCE MONITOR) Case Report Dermatopathology Report Case: [id number] Authorizing Provider: Qiana Cole MD Collected: 05/23/2024 12:00 AM Ordering Location: [facility] - Received: 05/24/2024 01:01 PM DermPath Lab Pathologist: Ela Bauer MD Specimens: A) - Skin, right lateral neck B) - Skin, right johnson C) - Skin, left hand 2:07 PM [facility] DERMATOPATHOLOGY LABORATORY Final Diagnosis Specimen A. 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 SKIN, right johnson: HYPERPLASTIC (HYPERTROPHIC) ACTINIC KERATOSIS (L57.0) Specimen C. 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 The specimen consists of a shave biopsy measuring 6x7x2 mm. Jar 0. Specimen B: Received is one formalin filled container labeled with the patient's name and designated right johnson. The specimen consists of a shave biopsy measuring 13x8x1 mm. Jar 0. Specimen C: Received is one formalin filled container labeled with the patient's name and designated left hand. The specimen consists of a shave biopsy measuring 8x8x2 mm. Jar 0. 2:07 PM [facility] DERMATOPATHOLOGY LABORATORY Microscopic Description Specimen A. SKIN, right lateral neck: The epidermis shows parakeratosis, full thickness disorderly maturation of keratinocytes, mitoses at different levels, and dyskeratotic cells. Specimen B. SKIN, right johnson: There is hyperkeratosis alternating with parakeratosis. There is epidermal hyperplasia with disorderly maturation of keratinocytes with nuclear pleomorphism confined to the lower half of the epidermis. Specimen C. SKIN, left hand: The epidermis shows parakeratosis, full thickness disorderly maturation of keratinocytes, mitoses at different levels, and dyskeratotic cells. In some foci, there is loss of cohesion between the neoplastic cells, as well as individual dyskeratotic cells that lack intercellular bridges. 4 2:07 PM COMPLIANCE MONITOR DERMATOPATHOLOGY LABORATORY Disclaimer An external and internal positive and negative controls are appropriate for the histochemical, immunohistochemical and immunofluorescence stain(s) in this case (if any), except where stated explicitly. The performance characteristics of the stain(s) cited in this report were developed and its performance characteristic determined by the Dermatopathology Laboratory at [facility], directed by Dr. Tian Barrios. These tests need not be, and therefore are not, approved by the [place] Food and Drug Administration. The tests are used for clinical purposes. Billing Codes Specimen Charges Stain Charges 07728 86060 56449 1 1 1 4 2:07 PM COMPLIANCE MONITOR DERMATOPATHOLOGY LABORATORY Embedded Images 4 2:07 PM COMPLIANCE MONITOR DERMATOPATHOLOGY LABORATORY Pathology/Cytology TISSUE SPECIMEN FROM SKIN / Unknown 05/23/2024 05/24/2024 1:01 PM COMPLIANCE MONITOR Miscellaneous samples (specimen) TISSUE SPECIMEN FROM SKIN / Unknown 05/23/2024 05/24/2024 1:01 PM COMPLIANCE MONITOR Miscellaneous samples (specimen) TISSUE SPECIMEN FROM SKIN / Unknown 05/23/2024 05/24/2024 1:01 PM COMPLIANCE MONITOR Qiana Cole MD LAB - PATHOLOGY/CYTO LOGY ORDERABLES DERMATOPATHOLOGY LABORATORY [facility] Department of Dermatology [address], [address] [phone] documented in this encounter Visit Diagnoses Diagnosis Neoplasm of uncertain behavior of skin documented in this encounter Care Teams News Reel Cameraman Relationship Specialty Start Date End Date Carlos Raines DO [address] [place] [address] PCP - General 03/18/22 documented as of this encounter
--- OUTSIDE RECORDS SUMMARY | 2024-09-03 14:22 | XMS_ITS | Clinical Summary ---
Author Organization [facility] Address [address], [facility] [address] [place] [address] Phone Care Team Providers Care Program Manager Rn Name Role Phone Zane Shields MD Primary Care Provider [phone] Allergies Active Allergy Reactions Criticality Noted Date Comments Azithromycin Other (see Comments),Rash Low 08/15/2011 Other reaction(s): Skin Reactions Reaction: Other Codeine Nausea Low 01/25/2012 Niacin Swelling 08/15/2011 Medications amitriptyline (ELAVIL) 10 MG Tablet Take 10 mg by mouth. 04/18/2017 Active losartan-hydroch lorothiazide (HYZAAR) 100-12.5 MG Tablet Take by mouth. 100/12.5 mg 1 tab qd 12/01/2017 Active metFORMIN (GLUCOPHAGE-XR) 500 MG TABLET SR 24 HR Take 500 mg by mouth daily. 04/18/2017 Active atorvastatin (LIPITOR) 20 MG Tablet Take 20 mg by mouth daily. 10/28/2017 Active celecoxib (CELEBREX) 200 MG Capsule Take 200 mg by mouth. 12/11/2017 Active ONETOUCH VERIO Strip 3 10/05/2018 Active Multiple Vitamin (MULTI-VITAMIN PO) Take by mouth. Active Potassium Chloride (KLOR-CON 10 PO) Take 10 mEq by mouth. Active famotidine (PEPCID) 40 MG Tablet TAKE 1 TABLET TWICE A DAY 60 Tab 11 03/09/2020 Active Social History Tobacco Use Types Packs/Day Years Used Date Smoking Tobacco: Every Day Cigarettes Smokeless Tobacco: Never Alcohol Use Standard Drinks/Week Comments Not Currently 0 (1 standard drink = 0.6 oz pur e alcohol) Comments No Sex and Gender Information Value Date Recorded Sex Assigned at Not on file Legal Sex Female 11:28 PM CDT Gender Identity Not on file Sexual Orientation Not on file Last Filed Vital Signs Vital Sign Reading Time Taken Comments Blood Pressure 128/64 11/14/2018 1:10 PM CDT Pulse 83 11/14/2018 1:10 PM CDT Temperature 36.9 C (98.5 F) 11/14/2018 1:10 PM CDT Respiratory Rate 16 11/14/2018 1:10 PM CDT Oxygen Saturation 98% 11/14/2018 1:10 PM CDT Inhaled Oxygen Concentration - - Weight 63.5 kg (140 lb) 11/14/2018 1:10 PM CDT Height 160 cm (5' 3 ) 11/14/2018 1:10 PM CDT Body Mass Index 24.8 11/14/2018 1:10 PM CDT Plan of Treatment Health Maintenance Due Date Last Done Comments Hepatitis C Virus (HCV) Screening 1940 TdaP Immunization 1940 Zoster Immunization (1 of 2) 11/26/1991 Respiratory Syncytial Virus (RSV) Immunization (Adult) (1 - 1-dose 75+ series) 2016 Pneumococcal Immunization (50+ years) (2 of 2 - PPSV23) 03/13/2018 03/13/2017 Influenza Immunization (#1) 02/11/202409/2017, 03/13/2017, 03/27/2016, Additional history exists SARS-COV-2 Immunization ( season) 2024 05/11/2021, 09/01/2020, 08/11/2020 Pneumococcal Immunization Combined Discontinued 03/13/2017 Hepatitis B Immunization Aged Out No longer eligible based on patient's age to complete this topic Meningococcal Immunization (ACWY) Aged Out No longer eligible based on patient's age to complete this topic Rotavirus Immunization Aged Out No lo nger eligible based on patient's age to complete this topic Insurance MEDICARE [facility] Care Teams Program Manager Rn Relationship Specialty Start Date End Date Zane Shields MD [address], [address] [place] [address] PCP - General Internal Medicine 11/14/18
--- OUTSIDE RECORDS SUMMARY | 2024-09-03 14:22 | XMS_ITS | Clinical Summary ---
Author Organization [facility] Address [address] [place] [address] Care Team Providers Care Respite Worker Name Role Phone Eder Crawley MD Primary Care Provider [phone] Allergies Active Allergy Reactions Criticality Noted Date Comments Adhesive Rash Medium Azithromycin Other (See comments) Low 08/15/2011 Other reaction(s): Skin Reactions Reaction: Other Codeine Headache Low Niacin Joint pain,Redness Low 08/10/2020 Medications amitriptyline (ELAVIL) 10 mg tablet TAKE 1 TABLET AT BEDTIME. 04/18/2017 Active cyclobenzaprine (FLEXERIL) 10 mg tablet TAKE 1 TABLET 3 TIMES DAILY as needed 07/21/2017 Active metFORMIN XR (GLUCOPHAGE XR) 500 mg 24 hr tablet daily. 04/18/2017 Active multivitamin tabletIndication s:Vitamin Deficiency Prevention Active pantoprazole DR (PROTONIX) 40 mg EC tablet daily. 04/18/2017 Active potassium chloride ER (potassium chloride ER) 10 mEq CR tablet 07/21/2017 Activ e losartan-hydroCH LOROthiazide (HYZAAR) 100-12.5 mg per tablet 12/01/2017 Active celecoxib (CeleBREX) 200 mg capsule 12/11/2017 Active atorvastatin (LIPITOR) 20 mg tablet 10/28/2017 Active doxycycline (DORYX) 100 mg EC tablet Take 100 mg by mouth 2 (two) times a day Active Anoro Ellipta 62.5-25 mcg/actuation blister with device 08/22/2020 Active Active Problems Problem Noted Date Diagnosed Date Leg wound, right, initial encounter 08/14/2020 Assessment & Plan (08/25/2020 9:04 PM CDT): Impression: Healed right medial calf superficial ulceration with ongoing hyperemia. She has history of skin cancer of her right lower extremity which have been removed in the past by her gold assayer. Plan: Recommend following up with her gold assayer to further evaluate her hyperemic patch of skin to her right medial calf. Patient follow-up on as-needed basis. Assessment & Plan (08/14/2020 8:32 AM TANNERY GUMMER): Patient has a small nonhealing wound on her right leg that is itchy to her and says that is seems to have gotten bigger. Her studies suggest that this is not due to venous stasis and she does have enough arterial blood flow to heal any wounds. Given the look of this small area along with her symptoms it is likely that it could be a fungal infection. Plan will be to have her put a topical antifungal on area keep it covered and I will have her follow up in 2 weeks. She says she understands and will start using antifungal. Peripheral vascular disease, unspecified 021 Assessment & Plan (08/14/2020 8:32 AM TANNERY GUMMER): Patient has mild peripheral arterial disease. She says that she is able to walk as far she would like to go without having claudication until she has gone quite a long distance. Dyslipidemia 08/14/2020 Assessment & Plan (08/25/2020 9:04 PM CDT): Impression: Stable chronic hyperlipidemia. Plan: Medications reviewed I recommend continuing daily statin regimen as directed by patient's primary care physician. Assessment & Plan (08/14/2020 8:33 AM TANNERY GUMMER): Followed by her PCP and controlled on a statin. Gastroesophageal reflux disease 04/18/2017 Lumbar radiculopathy 04/18/2017 Diabetes mellitus 04/18/2017 Assessment & Plan (08/14/2020 8:32 AM TANNERY GUMMER): Followed by her PCP and controlled on her current medication regimen. Hypertension 04/18/2017 Assessment & Plan (08/25/2020 9:04 PM CDT): Impression: Stable chronic hypertension. Plan: Medications reviewed and recommend continuing daily antihypertensive regimen as directed by patient's primary care physician. Assessment & Plan (08/14/2020 8:32 AM TANNERY GUMMER): Followed by her PCP and controlled on her current medication regimen. 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 04/18 Immunizations Immunization Administration Dates Next Due Influenza, Trivalent, High D ose, Split, Preservative Free, Intramuscular 03/12/2019,03/15/2018,03/13/2017,03/27,04/13/2015 Influenza, Unspecified 04/12/2017,2013,05/06/2013,03/21 Pneumococcal Conjugate PCV 13 03/13/2017 Surgical History Surgery Date Site/Laterality Comments DE CHOLECYSTECTOMY Cholecystectomy - (Added by TW Conv) DE APPENDECTOMY Appendectomy - (Added by TW Conv) DE ASPIRATION AND/OR INJECTI ON THYROID CYST Thyroid Surgery Aspiration Of Cyst - goiter (Added by TW Conv) DE SUPRACERVICAL ABDL HYSTER W/WO RMVL TUBE OVARY Supracervical Hysterectomy - partial hysterectomy 1981 (Added by TW Conv) Medical History Medical History Date Comments Hypertension Hyperlipidemia Borderline diabetes Family History Medical History Relation Name Comments Stroke Father Stroke Other Family history of cerebrovascular accident (CVA) - (Added by TW Conv) Diabetes Paternal Grandfather Relation Name Status Comments Father Other Paternal Grandfather Social History Tobacco Use Types Packs/Day Years Used Date Smoking Tobacco: Every Day Cigarettes 0.5 66.1 Started: [birth year]10/1957 Smokeless Tobacco: Never Alcohol Use Standard Drinks/Week Comments No 0 (1 standard drink = 0.6 oz pur e alcohol) Personal Safety Answer Date Recorded Getting School Help Needed Not on file 08/11 Comments Unknown Sex and Gender Information Value Date Recorded Sex Assigned at Not on file Legal Sex Female 6:23 AM CDT Gender Identity Not on file Sexual Orientation Not on file Obstetrics History Last Filed Vital Signs Vital Sign Reading Time Taken Comments Blood Pressure 151/79 08/24/2020 1:07 PM CDT Pulse 94 08/24/2020 1:07 PM CDT Temperature 36 C (96.8 F) 04/05/2016 9:02 AM CDT Respiratory Rate - - Oxygen Saturation 93% 06/17/2017 7:35 AM TANNERY GUMMER Inhaled Oxygen Concentration - - Weight 61.2 kg (135 lb) 08/24/2020 1:07 PM CDT Height 157.5 cm (5' 2 ) 08/24/2020 1:07 PM CDT Body Mass Index 24.69 08/24/2020 1:07 PM CDT Plan of Treatment Not on file Insurance MEDICARE [employer] LIFE MEDICARE FOR LIFE Care Teams Respite Worker Relationship Specialty Start Date End Date Eder Crawley MD [address] [facility] [address] [place] [address] PCP - General 03/31/17
--- OUTSIDE RECORDS SUMMARY | 2024-09-03 14:22 | XMS_ITS | Clinical Summary ---
Author Organization [facility] Address [address] [place] [address] Care Team Providers Care Credit Collection Specialist Name Role Phone Carlos Raines DO Primary Care Provider [phone] Allergies Active Allergy Reactions Criticality Noted Date Comments Azithromycin Other (see comment),Rash,Hives Low 08/15/2011 Other reaction(s): Skin Reactions Reaction: Other Other reaction(s): Skin Reactions Reaction: Other Codeine Headache,Nausea Only,Nausea and Vomiting Low 01/25/2012 Niacin Joint Pain,Redness,Swelling Low 08/15/2011 Prednisone Headache 10/28/2021 Tape Rash Medium 10/28/2021 Medications famotidine 40 MG tablet Take 40 mg by mouth 2 (two) times daily. 2 Active losartan-hydroCH LOROthiazide 100-12.5 MG Tab Take 1 tablet by mouth daily. 2 Active potassium chloride CR 10 MEQ Tab CR tablet Take 30 mEq by mouth daily with lunch. 2 Active atorvastatin (LIPITOR) 40 MG tablet Take 40 mg by mouth nightly at bedtime. Active amitriptyline (ELAVIL) 10 MG tablet Take 10 mg by mouth nightly at bedtime. Active ADVANCED FIBER COMPLEX OR Take 1 Dose by mouth daily. Gummy formulation Active Multiple Vitamins-Mineral s (MULTIVITAMIN ADULT) Chew Tab Chew 2 chewable tablet by mouth daily. Active HYDROcodone-acet aminophen (NORCO) 5-325 MG tabletIndication s:Chronic Pain Take 1-2 tablets by mouth every 4 (four) hours as needed for Pain (incisional). Indications: Chronic Pain 40 tablet 2 Active cyclobenzaprine (FLEXERIL) 10 MG tabletIndication s:S/P laminectomy Take 1 tablet (10 mg total) by mouth 3 (three) times daily as needed for Muscle Spasms. 40 tablet 2 Active senna-docusate (SENOKOT-S) 8.6-50 MG tabletIndication s:S/P laminectomy Take 1 tablet by mouth daily. 60 tablet 2 Active Active Problems Problem Noted Date Diagnosed Date S/P laminectomy 04/19/2022 Spinal stenosis of lumbar re gion with neurogenic claudication 04/19/2022 Family History Relation Status Comments Daughter Alive Father Mother Son Alive Social History Tobacco Use Types Packs/Day Years Used Date Smoking Tobacco: Every Day Cigarettes 0.5 62 Smokeless Tobacco: Never Tobacco Cessation:Ready to Q uit: Not Asked; Counseling Given: Not Answered Alcohol Use Standard Drinks/Week Comments Not Currently 0 (1 standard drink = 0.6 oz pur e alcohol) Comments No Sex and Gender Information Value Date Recorded Sex Assigned at Not on file Legal Sex Female 11:48 AM MANAGER LAN Gender Identity Female 03/23/2022 4:27 PM CDT Sexual Orientation Straight 03/23/2022 4: 27 PM CDT Last Filed Vital Signs Vital Sign Reading Time Taken Comments Blood Pressure 135/80 07/22/2022 11:37 AM MANAGER LAN Pulse 78 07/22/2022 11:37 AM MANAGER LAN Temperature 36.2 C (97.1 F) 07/22/2022 11:37 AM MANAGER LAN Respiratory Rate 19 07/22/2022 11:37 AM MANAGER LAN Oxygen Saturation 99% 07/22/2022 11:37 AM MANAGER LAN Inhaled Oxygen Concentration - - Weight 57.2 kg (126 lb) 07/22/2022 11:37 AM MANAGER LAN Height 160 cm (5' 3 ) 07/22/2022 11:37 AM MANAGER LAN Body Mass Index 22.32 07/22/2022 11:37 AM MANAGER LAN Plan of Treatment Health Maintenance Due Date Last Done Comments DTaP, Tdap and Td Vaccines (1 - Tdap) 1959 Annual Medicare Wellness Visit 2006 Dexa Scan (General) 2006 RSV Immunization or 60+ Years (1 - 1-dose 75+ series) 2016 Pneumococcal Vaccine: 65+ Years (2 of 2 - PPSV23 or PCV20) 05/08/2017 03/13/2017 Zoster Vaccines (2 of 2) 04/01/2020 02/05/2020 COVID-19 Vaccine (4 - season) 2024 05/11/2021, 09/01/2020, 08/11/2020 Influenza Adult (#1) 2024 03/26/2020, 03/12/2019, 03/15/2018, Additional history exists Meningococcal B Vaccine Aged Out No l onger eligible based on patient's age to complete this topic Meningococcal Vaccine Aged Out No jayne evangelist eligible based on patient's age to complete this topic RSV Immunizations Under 20 Months Aged Out No longer eligible based on patient's age to complete this topic Goals Goal Patient Goal Type Associated Problems Recent Progress Patient-Stated? Author Family - family caregiver with be involved in care transitions and discharge planning Lifestyle No Zia Huang, RN Insurance MEDICARE [facility] Advance Directives * Full Code (Latest Code Status on File) Date Activated Date Inactivated Comments 04/18/2022 7:44 PM 04/19/2022 5:31 PM Care Teams Credit Collection Specialist Relationship Specialty Start Date End Date Carlos Raines DO [address] [place] [id number] PCP - General INTERNAL MEDICINE 04/19/22
--- OUTSIDE RECORDS SUMMARY | 2024-09-03 14:22 | XMS_ITS | Referral Summary ---
Author Organization [facility] Address [address] [place] [phone] Care Team Providers Care Bread Wrapping Machine Feeder Name Role Phone Eder Crawley MD Primary Care Provider [phone] Allergies Active Allergy Reactions Criticality Noted Date [...] been removed in the past by her food beverage supervisor. Plan: Recommend following up with her food beverage supervisor to further evaluate her hyperemic patch of skin to her right medial calf. Patient follow-up on as-needed basis. Assessment & Plan (08/14/2020 8:32 AM SPECIAL NEEDS LIBRARIAN): Patient has a small nonhealing wound on [...] 021 Assessment & Plan (08/14/2020 8:32 AM SPECIAL NEEDS LIBRARIAN): Patient has mild peripheral arterial disease. She [...] physician. Assessment & Plan (08/14/2020 8:33 AM SPECIAL NEEDS LIBRARIAN): Followed by her PCP and controlled on a statin. Gastroesophageal reflux disease 04/18/2017 Lumbar radiculopathy 04/18/2017 Diabetes mellitus 04/18/2017 Assessment & Plan (08/14/2020 8:32 AM SPECIAL NEEDS LIBRARIAN): Followed by her PCP and controlled on her current medication regimen. Hypertension 04/18/2017 Assessment & Plan (08/25/2020 9:04 PM CDT): Impression: Stable chronic hypertension. Plan: Medications reviewed and recommend continuing daily antihypertensive regimen as directed by patient's primary care physician. Assessment & Plan (08/14/2020 8:32 AM SPECIAL NEEDS LIBRARIAN): Followed by her PCP and controlled on her current medication regimen. 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 04/18 Immunizations Immunization Administration Dates Next Due Influenza, Trivalent, High D ose, Split, Preservative Free, Intramuscular 03/12/2019,03/15/2018,03/13/2017,03/27,04/13/2015 Influenza, Unspecified 04/12/2017,2013,05/06/2013,03/21 Pneumococcal Conjugate PCV 13 03/13/2017 Social History Tobacco Use Types Packs/Day Years [...] - Oxygen Saturation 93% 06/17/2017 7:35 AM SPECIAL NEEDS LIBRARIAN Inhaled Oxygen Concentration - - Weight 61.2 kg (135 lb) 08/24/2020 1:07 PM CDT Height 157.5 cm (5' 2 ) 08/24/2020 1:07 PM CDT Body Mass Index 24.69 08/24/2020 1:07 PM CDT Plan of Treatment Not on file Insurance MEDICARE FOR LIFE MEDICARE FOR LIFE Care Teams Bread Wrapping Machine Feeder Relationship Specialty Start Date End Date Eder Crawley MD [address] [facility] [address] [place] [address] PCP - General 03/31/17
--- OUTSIDE RECORDS SUMMARY | 2024-09-03 14:22 | XMS_ITS | Encounter Summary ---
Author Organization [facility] Address [address] [place] [address] Care Team Providers Care Fine Arts Instructor Name Role Phone Eder Crawley MD Primary Care Provider [phone] Carlos Raines DO Primary Care Provider [phone] Encounter Details Date Type Department Care Team (Late st Contact Info) Description 03/16/2018 Lab Requisition [facility] Care DermPath Lab [address] [facility] [place] [address] Bogdan Ramirez MD [address] [place] [address] Social History Tobacco Use Types [...] Priority Date/Time Associated Diagnosis Comments DERMATOPATHOLOGY Routine 03/15/2018 12:0 0 AM CDT documented in this encounter Results * DERMATOPATHOLOGY (03/15/2018 12:00 AM CDT) Case Report Dermatopathology Report Case: [id number] Authorizing Provider: Bogdan Ramirez MD Collected: 03/15/2018 12:00 AM Pathologist: Ksenia Ramirez MD Received: 03/16/2018 12:11 PM Specimens: A) - Skin, right religious B) - Skin, right upper chest C) - Skin, right dorsal hand 2:17 PM [facility] DERMATOPATHOLOGY LABORATORY Final Diagnosis Specimen A. 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 SKIN, right upper chest: ACTINIC KERATOSIS (L57.0) Specimen C. 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 B: R/O ISK, SCC, Osborn's. C: R/O SCC, Osborn's, HAK. 2:17 PM [facility] DERMATOPATHOLOGY LABORATORY Gross Description Specimen A: Received is one formalin filled container labeled with the patient's name and designated right religious. The specimen consists of a shave biopsy measuring [id number]. Jar 0. Specimen B: Received is one formalin filled container labeled with the patient's name and designated right upper chest. The specimen consists of a shave biopsy measuring [id number]. Jar 0. Specimen C: Received is one formalin filled container labeled with the patient's name and designated right dorsal hand. The specimen consists of a shave biopsy measuring [id number]. Jar 0. 2:17 PM [facility] DERMATOPATHOLOGY LABORATORY Microscopic Description Specimen A. SKIN, right religious: The epidermis shows parakeratosis, full thickness disorderly maturation of keratinocytes, mitoses at different levels, and dyskeratotic cells. Specimen B. SKIN, right upper chest: There is focal parakeratosis. The lower half of the epidermis shows disorderly maturation of keratinocytes with nuclear pleomorphism. Specimen C. SKIN, right dorsal hand: The epidermis shows parakeratosis, full thickness disorderly maturation of keratinocytes, mitoses at different levels, and dyskeratotic cells. The adjacent epidermis shows the lower half of the epidermis with disorderly maturation of keratinocytes with nuclear pleomorphism. 8 2:17 PM CDT DERMATOPATHOLOGY LABORATORY Disclaimer An external and internal positive and negative controls are appropriate for the histochemical, immunohistochemical and immunofluorescence stain(s) in this case (if any), except where stated explicitly. The performance characteristics of the stain(s) cited in this report were developed and its performance characteristic determined by the Dermatopathology Laboratory at [facility]. These tests need not be, and therefore are not, approved by the [place] Food and Drug Administration. The tests are used for clinical purposes. Billing Codes Specimen Charges Stain Charges 90633 92039 73117 1 1 1 8 2:17 PM CDT DERMATOPATHOLOGY LABORATORY Embedded Images 8 2:17 PM CDT DERMATOPATHOLOGY LABORATORY Pathology/Cytology TISSUE SPECIMEN FROM SKIN / Unknown 03/15/2018 03/16/2018 12:11 PM CDT Miscellaneous samples (specimen) TISSUE SPECIMEN FROM SKIN / Unknown 03/15/2018 03/16/2018 12:11 PM CDT Miscellaneous samples (specimen) TISSUE SPECIMEN FROM SKIN / Unknown 03/15/2018 03/16/2018 12:11 PM CDT Bogdan Ramirez MD LAB - PATHOLOGY/CYTO LOGY ORDERABLES Performing Organization Address City/State/[facility] Co de Phone Number DERMATOPATHOLOGY LABORATORY [facility] - Department of Dermatology [address] [facility] Lab [address] [phone] documented in this encounter Visit Diagnoses Not on filedocumented in this encounter Care Teams Fine Arts Instructor Relationship Specialty Start Date End Date Eder Crawley MD [address] [place] [phone] PCP - General 04/27/10 03/17/22 Carlos Raines DO [address] [place] [address] PCP - General 03/18/22 documented as of this encounter
--- OUTSIDE RECORDS SUMMARY | 2024-09-03 14:22 | XMS_ITS | Encounter Summary ---
Author Organization [facility] Address [address] [place] [address] Care Team Providers Care Director Weights And Measures Name Role Phone Eder Crawley MD Primary Care Provider [phone] Carlos Raines DO Primary Care Provider [phone] Encounter Details Date Type Department Care Team (Late st Contact Info) Description 09/04/2020 Lab Requisition [facility] DermPath Lab [address] [facility] [place] [address] Bogdan Ramirez MD [address] [place] [address] Social History Tobacco Use Types [...] Priority Date/Time Associated Diagnosis Comments DERMATOPATHOLOGY Routine 09/02/2020 12:0 0 AM CDT documented in this encounter Results * DERMATOPATHOLOGY (09/02/2020 12:00 AM CDT) Case Report Dermatopathology Report Case: [id number] Authorizing Provider: Bogdan Ramirez MD Collected: 09/02/2020 12:00 AM Ordering Location: [facility] DermPath Lab Received: 09/04/2020 11:33 AM Pathologist: Ela Bauer MD Specimen: Skin, right med ankle 12:32 PM T DERMATOPATHOLOGY LABORATORY Final Diagnosis Specimen A. SKIN, right med ankle: HYPERPLASTIC (HYPERTROPHIC) ACTINIC KERATOSIS (L57.0) STASIS DERMATITIS (L30.8) (see microscopic description) 12:32 PM T DERMATOPATHOLOGY LABORATORY Clinical History R/O SCC. 12:32 PM T DERMATOPATHOLOGY LABORATORY Gross Description Specimen A: Received is one formalin filled container labeled with the patient's name and designated right med ankle. The specimen consists of 2 pieces of shave biopsy measuring [id number] and [id number]. Jar 0. 12:32 PM [facility] D[facility] Microscopic Description Specimen A. SKIN, right med ankle: There is hyperkeratosis alternating with parakeratosis. There is epidermal hyperplasia with disorderly maturation of keratinocytes with nuclear pleomorphism confined to the lower half of the epidermis. There is focal spongiosis. The dermis shows a sparse, perivascular lymphocytic infiltrate surrounding dilated, thick-walled vessels, which are increased in number. Adnexal extension of the lesion is seen. 12:32 PM [facility] DER[facility]ATORY Disclaimer An external and internal positive and negative controls are appropriate for the histochemical, immunohistochemical and immunofluorescence stain(s) in this case (if any), except where stated explicitly. The performance characteristics of the stain(s) cited in this report were developed and its performance characteristic determined by the Dermatopathology Laboratory at [facility], directed by Dr. Tian Barrios. These tests need not be, and therefore are not, approved by the [place] Food and Drug Administration. The tests are used for clinical purposes. Billing Codes Specimen Charges Stain Charges 92588 1 12:32 PM CDT DERMATOPATHOLOGY LABORATORY Embedded Images 12:32 PM T DERMATOPATHOLOGY LABORATORY Pathology/Cytolog y TISSUE SPECIMEN FROM SKIN / Unknown 09/02/2020 09/04/2020 11:33 AM CDT Bogdan Ramirez MD LAB - PATHOLOGY/CYTO LOGY ORDERABLES DERMATOPATHOLOGY LABORATORY [facility] - Department of Dermatology [address] [phone] documented in this encounter Visit Diagnoses Not on filedocumented in this encounter Care Teams Director Weights And Measures Relationship Specialty Start Date End Date Eder Crawley MD [address] [place] [phone] PCP - General 04/27/10 03/17/22 Carlos Raines DO [address] [place] [address] PCP - General 03/18/22 documented as of this encounter
--- OUTSIDE RECORDS SUMMARY | 2024-09-03 14:22 | XMS_ITS | Continuity of Care Document ---
Author Organization [facility] [place] Address [address] [place] [address] Phone Care Team Providers Care Sports Editor Name Role Phone Tim Mercer Unavailable Unavailable Procedures Procedure Date Visual Field Examination-Professional Ju Visual Field Examination-Technical Office/outpatient Visit, Est Dilated Retinal Exam W Interpretation Ma Office/outpatient Visit, Est No Script Eye Exam & Treatment Dilated Retinal Exam W Interpretation Ja Post-op Follow-up Visit Refraction Post-op Follow-up Visit Remove Cataract, Insert Lens PreSurg Dilated Fundus Eval Performed De PreSurg Measurements/IOL Calc Performed And Docum Presbyopia Correcting IOL Office/outpatient Visit, Est Visual Functional Status Assessed IOLMaster Eye Exam & Treatment Visual Functional Status Assessed Refraction Advance Directives Directive Yes / No Effective Date File Name No Information Encounters Encounter Description Practice Location Reason(s) For Visit Diagnoses Date Provider Providers Copied on Encounter [facility], [address], [place], [place], [id number], [place] tel:[phone] [facility] No Information 7-201 0 Ruslan Dumont. [address] , [address], [place], [address], [place]. tel:[phone] Referring Provider: Tim López, [address], [place], [address]. tel:[phone] [facility], [address], [place], [place], [address], [place] tel:[phone] [facility] No Information 5-201 0 Ruslan Dumont. [address], [place], [place], [facility], [place]. tel:[phone] Referring Provider: Tim López, [address], [place], [facility]. tel:[phone] Office/outpat ient Visit, [facility], [address], [place], [place], [address], [place] tel:[phone] [facility] No Information 0-201 0 Ruslan Dumont. [address] [facility] [address], [place], [address], [place]. tel:[phone] Referring Provider: Tim López, [address], [place], [place], [facility]. tel:[phone] Office/outpat ient Visit, [facility], [address], [place], [place], [address], [place] tel:[phone] [facility] No Information 7-200 9 Ruslan Dumont. [address], [place], [address], [place]. tel:[phone] Referring Provider: Tim López, [address], [place], [facility]. tel:[phone] [facility], [address], [place], [place], [address], [place] tel:[phone] [facility] No Information -200 9 Ruslan Edso. [address] , [address], [place], [address], [place]. tel:[phone] [facility], [address], [place], [place], [address], [place] tel:[phone] [facility] No Information 0 2-200 8 Ruslan Dumont. [address] , [address], [place], [address], [place]. tel:[phone] [facility], [address] [place] [address] [address], [place], [place], [address], [place] tel:[phone] [facility] No Information May-1 4-200 7 Ruslan Edso. [address] , [address], [place], [address], [place]. tel:[phone] [facility], [address], [place], [place], [address], [place] tel:[phone] [facility] No Information May-1 3-200 7 Ruslan Edso. [address] , [address], [place], [address], [place]. tel:[phone] Office/outpat ient Visit, Est [facility], [address], [place], [place], [address], [place] tel:[phone] [facility] No Information Dec-0 7-200 7 Doinisreen Edso. [facility] , [address], [place], [address], [place]. tel:[phone] Referring Provider: Tim López, [address], [place], [address]. tel:[phone] [facility], [address], [place], [place], [address], [place] tel:[phone] [facility] No Information 5-200 7 Escobar Ximena. [address] , [address], [place], [address], [place]. tel:[phone] Family History Family Member Type Diagnosis Age At Onset No Information Payers Payer name Insurance type Covered republican ID Authoriza tion(s) Medicare [facility] [id number] For Life Mdcr Supp CI [id number] Social History Type Description Quantity Date Captured Comments Sex Female Smoking Status No Information Chief Complaint And Reason For Visit No Information Reason For Referral Reason For Referral No Information History Of Present Illness Encounter Date Complaint History Of Prese nt Illness No Information Functional Status Date Functional Assessmen t No Information Instructions Date Instruction Additional Infor mation No Information Assessments Type Assessment Date No Information Patient Care Teams Name Effective Dates (start - stop) Status Members No Information
--- OUTSIDE RECORDS SUMMARY | 2024-09-03 14:22 | XMS_ITS | Clinical Summary ---
Author Organization [facility] Address [address] [place] [address] Care Team Providers Care Innersole Fitter Name Role Phone Carlos Raines Primary Care Provider [phone] Source Comments [facility],non-owned Affiliates and Associated Physician Practices is amultiple site organization consisting of ambulatory clinics and hospital sitesin [place], [place], [place] and [place]. This disclosure is being madepursuant to the Care Everywhere program and may not contain all information available regarding this patient. 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 Macular cyst, hole, or pseudohole, unspecified e ye 08/15/2012 Other vitreous opacities, unspecified eye 2011 Resolved Problems Problem Noted Date Diagnosed Date Resolved Date Conjunctivitis 03/26/2015 09/25/2017 Family History Medical History Relation Name Comments Cataract Brother Relation Name Status Comments Brother Social History Tobacco Use Types Packs/Day Years Used Date Smoking Tobacco: Every Day Cigarettes Alcohol Use Standard Drinks/Week Comments Yes 0 (1 standard drink = 0.6 oz pur e alcohol) Sex and Gender Information Value Date Recorded Sex Assigned at Not on file Gender Identity Not on file Sexual Orientation Not on file Plan of Treatment Health Maintenance Due Date Last Done Comments BONE DENSITY TESTING 1940 MEDICARE AWV 12 MONTHS 1940 DTAP/TDAP/TD VACCINES (1 - Tdap) 1960 PNEUMOCOCCAL VACCINE 50+ (1 of 2 - PCV) 1960 ZOSTER VACCINE (1 of 2) 11/26/1991 Respiratory Syncytial Virus (RSV) Vaccine Pt: or over 60 yrs (1 - 1-dose 75+ series) 2016 COVID-19 VACCINE (1 - 2023-2 5 season) 2024 INFLUENZA VACCINE (#1) 2024 DEPRESSION SCREENING 06/12/2024 HEPATITIS B VACCINE Aged Out No longe r eligible based on patient's age to complete this topic HIB VACCINE Aged Out No longer eligi ble based on patient's age to complete this topic HPV VACCINE Aged Out No longer eligi ble based on patient's age to complete this topic MENINGOCOCCAL (Group B) VACC INE SHARED DECISION-MAKING Aged Out No longer eligibl e based on patient's age to complete this topic MENINGOCOCCAL GROUPS A/C/Y/W VACCINE Aged Out No longer eligible b ased on patient's age to complete this topic Care Teams Innersole Fitter Relationship Specialty Start Date End Date Carlos Raines DO [address] [place] [address] PCP - General 03/18/22
== END 2024-09-03 12:24 | disposition home or self-care (01) ==
PROVIDERS: PCP Family Medicine; Visit Provider Nurse Practitioner Family
DX: J44.9 Chronic obstructive pulmonary disease, unspecified (principal); R05.9 Cough, unspecified; M17.0 Bilateral primary osteoarthritis of knee; R91.8 Other nonspecific abnormal finding of lung field
CPT/HCPCS: 71046; 73590

== ENCOUNTER 2025-05-02 09:34 | Outpatient (CLI) | payer MEDICARE, OTHER, SELFPAY ==
--- NOTE | ~2025-05-02 | CT_ITS ---
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 Technique: Axial images obtained of the brain without contrast. One or more of the following dose reduction techniques were used: automated exposure control, adjustment of the mA and/or kV according to patient size, use of iterative reconstruction technique. 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 No acute infarct or hemorrhage. No midline shift or mass effect. No extra-axial fluid collections. Mastoid air cells unremarkable. Sinuses and orbits unremarkable. No acute fracture. No significant facial or scalp soft tissue swelling evident. No radiopaque foreign body is seen. Impression: 1.No acute intracranial abnormality. Reviewed, dictated and finalized at location P. DESIGNER APPRENTICE Impression: 1.No acute intracranial abnormality.
== END 2025-05-02 09:35 | disposition home or self-care (01) ==
LOC: MICIMG 09:36
PROVIDERS: PCP Family Medicine; Visit Provider Family Medicine
DX: R44.3 Hallucinations, unspecified (principal)
CPT/HCPCS: 70450